=== PATIENT | female | born 1955 | race Caucasian/White ===

== ENCOUNTER 2021-03-10 13:42 | Outpatient (CLI) | payer OTHER ==
--- NOTE | 2021-03-16 08:56 | Mammography Report ---
BILATERAL DIGITAL SCREENING MAMMOGRAM 3D/2D: 03/10/2021 CLINICAL: Routine screening. No prior exams were available for comparison. The tissue of both breasts is predominantly fatty. No significant masses, calcifications, or other findings are seen in either breast. IMPRESSION: NEGATIVE There is no mammographic evidence of malignancy. A 1 year screening mammogram is recommended. This exam was interpreted at Station ID: [id number]. NOTE: For mammograms, a report in lay terms will be sent to the patient. Approximately 15% of breast malignancies will not be visualized mammographically. In the management of a palpable breast mass, a negative mammogram must not discourage biopsy of a clinically suspicious lesion. Electronically Signed By: Lee Harden acr/penrad:03/15/2021 14:01:11 ACR BI-RADS Category 1: Negative 3341F PARENCHYMAL PATTERN: (F) - The breast(s) demonstrate(s) diffuse fatty replacement. BI-RADS CATEGORY: (1) - 1 RECOMMENDATION: (ANNUAL) - Recommend routine annual screening mammography. [id number] 1 year screening LATERALITY: (B)
== END 2021-03-10 13:43 | disposition home or self-care (01) ==
LOC: DI 13:42
DX: Z12.31 Encounter for screening mammogram for malignant neoplasm of breast (principal)

== ENCOUNTER 2022-06-08 13:12 | Outpatient (CLI) | payer OTHER ==
--- NOTE | 2022-06-08 16:08 | MRI Report ---
PROCEDURE: HIP WO - RT INDICATIONS: RIGHT HIP PAIN TECHNIQUE: Noncontrast coronal T1 spin echo and STIR through the bony pelvis. Coronal and axial T2 fast spin ec ho with fat saturation, sagittal T1 spin echo, and oblique axial T2 fast spin echo with fat saturatio n through the hip. COMPARISON: None. FINDINGS: Image quality: Good Bones Pelvic ring: Intact Femoral head and neck: No acute fracture. There is some edema of the right femoral neck, with a small region extending to the right femoral head. No significant serpiginous signal abnormality that may s uggest osteonecrosis. Ligamentum teres: Intact. Lumbar spine and sacrum: Spondylotic changes. Tendons Abductors: Intact. Mild insertional tendinopathy. Adductors and rectus abdominis: Intact. No pubic symphyseal edema. IT band: Intact. Iliopsoas: Intact. No bursitis. Hamstrings: Intact. Rectus femoris: Intact. Joint: Joint space: Moderate joint effusion and synovitis in the right hip, extending into the bursa. Small effusion is also seen in the left hip. Labrum: Likely circumferential attenuation and degenerative tearing. Cartilage: Joint space loss and degenerative changes, particularly at the weightbearing aspects, with subchondral osseous changes. Soft tissues: Quadratus femoris: No edema or atrophy. Piriformis: Symmetric. Intrapelvic structures: Not well evaluated. No pathologic fluid, aneurysm, lymphadenopathy, or suspic ious mass. No bowel obstruction. Bladder is unremarkable. 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 Sub chondral edematous changes are present. Osteonecrosis is a differential consideration, but there is n o specific serpiginous signal abnormality visualized. Mild edema is also seen in the right femoral neck, which may additionally represent a stress reaction without displaced fracture at this time Similar, slightly less severe findings are also seen in the partially visualized left hip. Other findings as above. Reviewed by: Raúl Lowe MD on 06/08/2022 4:07 PM PST Approved by: Raúl Lowe MD on 06/08/2022 4:07 PM PST Station ID: [id number]
== END 2022-06-08 13:13 | disposition home or self-care (01) ==
LOC: DI 13:12
PROVIDERS: ATTEND Physician Assistant
DX: R10.2 Pelvic and perineal pain (principal); M16.11 Unilateral primary osteoarthritis, right hip; M25.451 Effusion, right hip; R93.6 Abnormal findings on diagnostic imaging of limbs

== ENCOUNTER 2022-08-03 10:44 | Outpatient (CLI) | payer MEDICARE, OTHER | END 2022-08-03 10:45 | disposition home or self-care (01) | LOC: DI 10:44 | PROVIDERS: ATTEND Orthopaedic Surgery | DX: Z01.818 Encounter for other preprocedural examination (principal); M16.0 Bilateral primary osteoarthritis of hip | CPT/HCPCS: 93306 ==

== ENCOUNTER 2023-01-28 16:12 | Emergency (ER) | payer MEDICARE, OTHER ==
[2023-01-28] MEDS ORDERED: ONDANSETRON 4 MG/2 ML VIAL IVP STA (16:30)
[2023-01-28] MEDS ORDERED: NIRMATRELVIR/RITONAVIR PREPACK PO STA (16:30)
[2023-01-28] MEDS ORDERED: SODIUM CHLORIDE 0.9% 1,000 ML IV STA (16:30)
[2023-01-28] MEDS ORDERED: DEXAMETHASONE 10 MG/ML VIAL IVP STA (16:30)
[2023-01-28] MEDS ORDERED: LACTATED RINGERS 1,000 ML IV STA (16:32)
--- NOTE | 2023-01-28 16:32 | ED Physician Documentation ---
History of Present Illness - Stated complaint Stated Complaint: N/V - Chief complaint Chief Complaint: Abd Pain - History obtained from History obtained from: Patient - Additonal information Additional information: Otherwise healthy 67-year-old woman became symptomatic yesterday with COVID. Her brought at home. She has had predominantly GI symptoms with vomiting and some stomach pain and also a headache. Denies fevers. PD PAST MEDICAL HISTORY - Present Medications Home Medications: Ambulatory Orders Medication Instructions Recorded Confirmed Amoxicillin 500 mg PO TID #20 capsule 05/08/16 Hydrocodone/Acetaminophen [[place] 1 each PO Q6H PRN #10 tablet 05/08/16 5-325 Tablet] Ondansetron Odt [Zofran] 4 mg TL Q6H PRN #15 tablet 05/08/16 dexAMETHasone [Decadron] 4 mg PO DAILY #5 tablet 05/08/16 Ondansetron Odt [Zofran] 4 mg TL Q6H PRN #10 tablet 01/28/23 - Allergies Allergies/Adverse Reactions: Allergies Allergy/AdvReac Type Severity Reaction Status Date / Time bee pollen Allergy Respiratory Verified 01/28/23 16:19 tramadol AdvReac Nausea Verified 01/28/23 16:19 - Social History Does the pt smoke?: No Smoking Status: Never smoker Results - Vitals Vitals: Vital Signs - 24 hr 01/28/23 01/28/23 16:19 18:22 Temperature 36.8 C 37.1 C Heart Rate 82 71 Respiratory 16 18 Rate Blood Pressure 121/56 L 122/63 O2 Saturation 95 96 Oxygen O2 Source Room air - Labs Labs: Laboratory Tests 01/28/23 01/28/23 16:40 16:40 WBC 5.7 RBC 4.64 Hgb 13.7 Hct 40.8 MCV 87.9 MCH 29.5 MCHC 33.6 RDW 12.8 Plt Count 205 MPV 9.6 Neut # (Auto) 4.6 Lymph # (Auto) 0.5 L [place] # (Auto) 0.6 Eos # (Auto) 0.0 Baso # (Auto) 0.0 Absolute Nucleated RBC 0.00 Nucleated RBC % 0.0 Sodium 139 Potassium 3.7 Chloride 105 Carbon Dioxide 26 Anion Gap 8.0 BUN 8 Creatinine 0.7 Estimated GFR (MDRD) 84 L Glucose 119 H Calcium 9.8 Magnesium 1.9 Total Bilirubin 0.7 AST 15 ALT 10 Alkaline Phosphatase 66 Total Protein 6.8 Albumin 4.2 Globulin 2.6 Albumin/Globulin Ratio 1.6 PD Medical Decision Making - ED course ED course: 67-year-old woman with symptomatic COVID. Main complaints are headache and nausea. She was feeling much better after the administration of dexamethasone, Zofran, and fluids and got some Toradol for the headache 2. Passed a p.o. challenge. Paxlovid discussed and accepted. Departure - Departure Disposition: 01 Home, Self Care Clinical Impression: COVID-19 Condition: Good Record reviewed to determine appropriate education?: Yes Instructions: ED Viral Syndrome Prescriptions: Ondansetron Odt [Zofran] 4 mg TL Q6H PRN #10 tablet PRN Reason: Nausea / Vomiting Comments: Stay hydrated, push fluids. Return for new or worsening symptoms. Expect you will get better over the next few days especially with the antivirals. You can take a NSAID of choice such as Aleve or ibuprofen for the headaches and other aches and pains. Forms: PCP List
[2023-01-28 16:45] LABS: BASOPHILS % (AUTO) 0.5 %; EOSINOPHILS % (AUTO) 0.2 %; HCT - HEMATOCRIT 40.8 % (37.0-47.0); HGB - HEMOGLOBIN 13.7 g/dL (12.0-16.0); LYMPHOCYTES # (AUTO) 0.5 10^3/uL (1.5-3.5); LYMPHOCYTES % (AUTO) 8.4 %; MEAN CORPUSCULAR HEMOGLOBIN 29.5 pg (27.0-31.0); MEAN CORPUSCULAR HGB CONC 33.6 g/dL (32.0-36.0); MEAN CORPUSCULAR VOLUME 87.9 fL (81.0-99.0); MEAN PLATELET VOLUME 9.6 fL (7.9-10.8); MONOCYTES # (AUTO) 0.6 10^3/uL (0.0-1.0); MONOCYTES % (AUTO) 10.8 %; NEUTROPHILS # (AUTO) 4.6 10^3/uL (1.5-6.6); NEUTROPHILS % (AUTO) 79.9 %; PLT - PLATELET COUNT 205 10^3/uL (130-450); RED BLOOD COUNT 4.64 10^6/uL (4.20-5.40); RED CELL DISTRIBUTION WIDTH 12.8 % (12.0-15.0); WHITE BLOOD COUNT 5.7 x10^3/uL (4.8-10.8)
[2023-01-28 17:02] LABS: ALBUMIN 4.2 g/dL (3.2-5.5); ALBUMIN/GLOBULIN RATIO 1.6 (1.0-2.2); BILIRUBIN,TOTAL 0.7 mg/dL (0.2-1.0); CALCIUM 9.8 mg/dL (8.5-10.3); CREATININE 0.7 mg/dL (0.6-1.3); MAGNESIUM 1.9 mg/dL (1.7-2.3); POTASSIUM 3.7 mmol/L (3.5-4.5); TOTAL PROTEIN 6.8 g/dL (6.4-8.9)
[2023-01-28] MEDS ORDERED: KETOROLAC 15 MG/ML VIAL IVP STA (17:43)
[2023-01-28 18:33] VITALS: BP 122/63; O2SAT 96
[2023-01-28] MEDS ORDERED: ONDANSETRON ODT 4 MG Prepack 2 TL STA (18:35)
== END 2023-01-28 18:50 | disposition home or self-care (01) ==
LOC: ED 16:12
DX: U07.1 COVID-19 (principal)
CPT/HCPCS: 36415; 80053; 83735; 85025; 96374; 96375; 99283; J3490; J7120